=== PATIENT | female | born 1990 | race Caucasian/White ===

== ENCOUNTER 2017-06-23 00:20 | Emergency (ER) | payer OTHER ==
[2017-06-23 02:28] LABS: APPEARANCE,URINE CLEAR; BILIRUBIN,URINE NEGATIVE (NEGATIVE); GLUCOSE, URINE NEGATIVE (NEGATIVE); KETONES,URINE TRACE mg/dL (NEGATIVE); LEUKOCYTE ESTERASE,URINE NEGATIVE (NEGATIVE); NITRITE,URINE NEGATIVE (NEGATIVE); PROTEIN,URINE NEGATIVE (NEGATIVE); URINE SPECIFIC GRAVITY 1.005; UROBILINOGEN,URINE NEGATIVE mg/dL (<2.0)
[2017-06-23] MEDS ORDERED: ONDANSETRON 4 MG TAB.RAPDIS PO ONE (04:02)
[2017-06-23] MEDS ORDERED: IBUPROFEN 600 MG TABLET PO ONE (04:02)
--- NOTE | 2017-06-23 04:05 | ER Document Report ---
ED General - General Chief Complaint: Vaginal Pain Stated Complaint: VAGINAL PAIN Time Seen by Provider: 06/23/17 01:51 Notes: Patient is a 26-year-old female without past medical history, no prior abdominal surgeries, LMP approximately 1 month ago who presents with acute lower abdominal pain and vaginal pain in the setting of attempted sexual intercourse. Patient states as soon as her began to perform penile penetration of the vagina she had a severe, constant, stabbing pain that has slightly diminished since that time but still remains present. Denies any history of similar symptoms in the past. Nothing is improved or worsened her symptoms. She has had some bloody spotting over the last 24 hours. She denies any vomiting, fever, upper abdominal pain. She has not seen her primary doctor or [facility] regarding today's concerns. TRAVEL OUTSIDE OF THE [place] IN LAST 30 DAYS: No - Related Data Allergies/Adverse Reactions: acetaminophen [From Percocet] Allergy (Verified 09/06/14 18:51) doxycycline [Doxycycline] Allergy (Verified 09/06/14 18:51) hydrocodone bitartrate [From Lortab] Allergy (Verified 09/06/14 18:51) oxycodone HCl [From Percocet] Allergy (Verified 09/06/14 18:51) Past Medical History - General Information source: Patient - Social History Smoking Status: Current Some Day Smoker Chew tobacco use (# tins/day): No Frequency of alcohol use: Social Drug Abuse: None Lives with: Spouse/Significant other Family History: Reviewed & Not Pertinent Patient has suicidal ideation: No Patient has homicidal ideation: No Pulmonary Medical History: Reports: Hx Bronchitis Neurological Medical History: Reports: Hx Migraine, Hx Seizures Renal/ Medical History: Reports: Hx Ovarian Cysts. Denies: Hx Peritoneal Dialysis GI Medical History: Reports: Hx Gastroesophageal Reflux Disease Musculoskeltal Medical History: Reports Hx Musculoskeletal Trauma Skin Medical History: Reports Hx MRSA Psychiatric Medical History: Reports: Hx Anxiety, Hx Depression - anxiety Past Surgical History: Reports: Hx Adenoidectomy, Hx Breast Surgery - augmentation, Hx Section - x2, Hx Gynecologic Surgery - ovarian cyst, Hx Nose Surgery, Hx Oral Surgery, Hx Tonsillectomy - Immunizations Hx Diphtheria, Pertussis, Tetanus Vaccination: Yes Review of Systems - Review of Systems Notes: Constitutional: Negative for fever. HENT: Negative for sore throat. Eyes: Negative for visual changes. Cardiovascular: Negative for chest pain. Respiratory: Negative for shortness of breath. Gastrointestinal: Positive for abdominal pain Genitourinary: Positive for pain with sexual intercourse Musculoskeletal: Negative for back pain. Skin: Negative for rash. Neurological: Negative for headaches, weakness or numbness. 10 point ROS negative except as marked above and in HPI. Physical Exam - Vital signs Vitals: Temp Pulse Resp BP Pulse Ox 98.1 F 71 18 134/78 H 98 06/23/17 00:26 06/23/17 00:26 06/23/17 00:26 06/23/17 00:26 06/23/17 00:26 Interpretation: Normal Notes: PHYSICAL EXAMINATION: GENERAL: Sleeping when I initially walked into the room. Appears in no distress HEAD: Atraumatic, normocephalic. EYES: Pupils equal round and reactive to light, extraocular movements intact, sclera anicteric, conjunctiva are normal. ENT: nares patent, oropharynx clear without exudates. Moist mucous membranes. NECK: Normal range of motion, supple without lymphadenopathy LUNGS: Breath sounds clear to auscultation bilaterally and equal. No wheezes rales or rhonchi. HEART: Regular rate and rhythm without murmurs ABDOMEN: Soft, nontender, normoactive bowel sounds. No guarding, no rebound. No masses appreciated. : Brownish, bloody vaginal discharge. There is an associated thin white discharge. No cervical motion tenderness. Pain on palpation of the cervix. Bilateral mild adnexal tenderness. EXTREMITIES: Normal range of motion, no pitting or edema. No cyanosis. NEUROLOGICAL: No focal neurological deficits. Moves all extremities spontaneously and on command. PSYCH: Normal mood, normal affect. SKIN: Warm, Dry, normal turgor, no rashes or lesions noted. Course - Re-evaluation Re-evalutation: 06/23/17 04:03 Patient presents with pain with sexual intercourse tonight. Pelvic examination appears the patient is having a menstrual period with associated cervical tenderness. She has no cervical motion tenderness does have bilateral adnexal and suprapubic tenderness. She is not and urinalysis is unremarkable. There is a thin vaginal discharge in addition to clotted blood suggestive of possible bacterial vaginosis. Given the patient's bilateral adnexal tenderness will obtain a transvaginal ultrasound to further evaluate for any evidence of a tubo-ovarian abscess or acute pelvic inflammatory disease although again I have an overall low clinical suspicion for this diagnosis given the absence of fever , tachycardia, cervical motion tenderness and clinical history. 06/23/17 05:01 Vaginal ultrasound is unremarkable. IUD is in place. Patient's symptoms are improved. At this time will discharge with return precautions and follow-up recommendations. Verbal discharge instructions given a the bedside and opportunity for questions given. Medication warnings reviewed. Patient is in agreement with this plan and has verbalized understanding of return precautions and the need for primary care follow-up in the next 24-72 hours. - Vital Signs Vital signs: Temp Pulse Resp BP Pulse Ox 98.1 F 68 18 109/69 99 06/23/17 00:26 06/23/17 01:26 06/23/17 01:26 06/23/17 01:26 06/23/17 01:26 - Laboratory Laboratory results interpreted by me: 06/23/17 02:00 Urine Ketones TRACE H - Diagnostic Test Radiology reviewed: Reports reviewed Discharge - Discharge Clinical Impression: Dyspareunia, Menstrual pain Condition: Good Disposition: HOME, SELF-CARE Additional Instructions: Your labs and ultrasound are normal. Your IUD is in the appropriate position. Your symptoms now are likely due to starting her menstrual cycle and having cervical tenderness during intercourse. Follow-up with your [facility] at your earliest ability. Return for any additional symptoms that you may have including worsening abdominal pain, fever greater than 101F, persistent vomiting, passing out, or any other symptoms that are worrisome to you.
--- NOTE | 2017-06-23 04:55 | RADIOLOGY REPORT (SQ) ---
EXAM DESCRIPTION: U/S NON OB PEL TV W/DOPPLER COMPLETED DATE/TIME: 06/23/2017 4:42 am REASON FOR STUDY: bilateral adnexal tenderness COMPARISON: 06.28.16 TECHNIQUE: Dynamic and static grayscale images acquired of the pelvis via transvaginal approach and recorded on PACS. Additional selected color Doppler and spectral images recorded. LIMITATIONS: None. FINDINGS: UTERUS: Contour normal. No mass. IUD appears adequate. ENDOMETRIAL STRIPE: No focal or generalized thickening. No masses. CERVIX: No nabothian cysts. 2.4 cm length. RIGHT OVARY: No abnormal masses. RIGHT OVARY DOPPLER: Normal arterial vascular flow without evidence for torsion. LEFT OVARY: No abnormal masses. LEFT OVARY DOPPLER: Normal arterial vascular flow without evidence for torsion. FREE FLUID: Minimal. OTHER: No other significant finding. MEASUREMENTS: UTERUS: 7.6 x 4 x 5 cm. ENDOMETRIAL STRIPE: 1.6 cm in thickness partially obscured due to IUD artifact. RIGHT OVARY: 3.9 cm with 2.6 cm cystic component. LEFT OVARY: 3.0 cm. IMPRESSION: No significant abnormality. IUD. TECHNICAL DOCUMENTATION: JOB ID: [id number] [employer]- All Rights Reserved
[2017-06-23 05:28] VITALS: BP 103/58
[2017-06-23 07:14] LABS: CHLAM PCR NOT DETECTED (NOT DETECT)
== END 2017-06-23 05:26 | disposition home or self-care (01) ==
LOC: ER 00:20
DX: N94.10 Unspecified dyspareunia (principal); N94.6 Dysmenorrhea, unspecified; R10.2 Pelvic and perineal pain; F17.200 Nicotine dependence, unspecified, uncomplicated; Z88.6 Allergy status to analgesic agent; Z97.5 Presence of (intrauterine) contraceptive device; Z86.14 Personal history of Methicillin resistant Staphylococcus aureus infection
CPT/HCPCS: 99284; 87210; 81025; 81001; 87491; 87591; 76830; 93976; S0119